=== PATIENT | female | born 1960 | race Hispanic/Latino ===

== ENCOUNTER 2018-03-17 20:14 | Observation (INO) | payer OTHER, SELFPAY ==
[2018-03-17] MEDS ORDERED: diphenhydrAMINE 50 MG/ML VIAL ONE (22:20)
[2018-03-17] MEDS ORDERED: Metoclopramide HCl 10 MG/2 ML VIAL ONE (22:20)
--- NOTE | 2018-03-17 23:05 | CT ---
CT BRAIN NONCONTRAST: DATE: 03/17/18 TIME: 10:48 p.m. HISTORY: 57-year-old female with left sided headaches, photophobia and left upper extremity weakness. FINDINGS: There is no midline shift or any other mass effect. There is no evidence of acute intracranial hemor rhage, large cortical infarct, obstructive hydrocephalus, or extraaxial fluid collection. The calvar ium is intact. There is a small apparently intra-axial calcification in the left frontal cortex which is unchanged compared to previous CT of 04/15/10. This is nonspecific. 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 IMPRESSION: 1. No acute intracranial findings. 2. Small, benign left frontal lobe calcification. elo reeves POS: [facility]
[2018-03-17 23:40] LABS: #Monocytes 0.1 thou/uL (0.11-0.59); #Neutrophils 8.3 thou/uL (1.40-6.50); %Basophils 0.2 % (0.0-1.0); %Lymphocytes 10.1 % (21.0-51.0); %Monocytes 0.7 % (0.0-10.0); %Neutrophils 88.9 % (42.0-75.0); Hemoglobin 13.4 g/dL (12.0-16.0); Mean Corpuscular HGB CONC 34.6 g/dL (32.0-36.0); Mean Corpuscular Hemoglobin 30.3 pg (27.0-31.0); Mean Corpuscular Volume 87.7 fL (78.0-98.0); Mean Platelet Volume 7.9 fL (7.4-10.4); Platelet Count 247 thou/uL (130-400); RBC Distribution Width 12.1 % (11.5-14.5); Red Blood Cell (RBC) Count 4.43 mill/uL (4.20-5.40); White Blood Cell (WBC) Count 9.4 thou/uL (4.8-10.8)
[2018-03-17 23:47] LABS: PTT 31.8 SEC (22.9-36.1); Prothrombin Time 13.5 SEC (12.0-14.7)
[2018-03-17 23:51] LABS: ALT (SGPT) 25 U/L (8-55); AST (SGOT) 29 U/L (5-34); Albumin 4.8 g/dL (3.5-5.0); Alkaline Phosphatase 88 U/L (40-150); Anion Gap 11 mmol/L (10-20); BUN (Urea Nitrogen) 28 mg/dL (9.8-20.1); Bilirubin, Total 0.3 mg/dL (0.2-1.2); Calc. Creatinine Clearance 0 mL/min (70-130); Calcium 9.7 mg/dL (7.8-10.44); Carbon Dioxide 23 mmol/L (22-29); Chloride 108 mmol/L (98-107); Estimated GFR-MDRD 59; Globulin 3.1 g/dL (2.4-3.5); Glucose 153 mg/dL (70-105); Potassium 4.3 mmol/L (3.5-5.1); Protein, Total 7.9 g/dL (6.0-8.3); Sodium 138 mmol/L (136-145)
[2018-03-18] MEDS ORDERED: Ondansetron HCl/PF 4 MG/2 ML Vial IVP PRN ×2 (02:49→05:02)
[2018-03-18] MEDS ORDERED: Ondansetron ODT 4 MG TAB SL PRN (02:49)
[2018-03-18] MEDS ORDERED: Acetaminophen 325 MG TAB PO PRN ×2 (02:49→05:02)
[2018-03-18 03:09] VITALS: BMI 24.1
[2018-03-18] MEDS ORDERED: hydrALAZINE 20 MG/ML VIAL SLOW IVP PRN ×2 (05:02)
[2018-03-18] MEDS ORDERED: Diabetic Tussin 200 MG/10 ML UDCUP PO PRN (05:02)
[2018-03-18] MEDS ORDERED: Loratadine 10 MG TAB PO PRN (05:02)
[2018-03-18] MEDS ORDERED: Benzonatate 100 MG CAP PO PRN (05:02)
[2018-03-18] MEDS ORDERED: Lorazepam 1 MG TAB PO PRN (05:02)
[2018-03-18] MEDS ORDERED: traMADol HCl 50 MG TAB PO PRN (05:02)
[2018-03-18] MEDS ORDERED: Nitroglycerin 0.4 MG TAB (25 Tab Bottle) SL PRN (05:02)
--- NOTE | 2018-03-18 05:41 | HP ---
DATE OF ADMISSION: 03/18/2018 PRIMARY CARE PHYSICIAN: Yulisa Murillo D.O. CHIEF COMPLAINT: Headache and left arm numbness. HISTORY OF PRESENT ILLNESS: Ms. Hester is a pleasant 57-year-old female with past medical history o nly of hypothyroidism who presented to the emergency room with the above-mentioned complaint. Histor y is mainly obtained by the patient herself. Electronic medical records have been reviewed. Case dominguez s been discussed with admitting ER physician, Dr. Nielson. Ms. Hester reported that for the last 3 weeks she has been having intermittent left-sided headache, which is quite severe. It is associated with photophobia and yesterday morning, she started to have left upper extremity weakness. She denies any facial droop or slurred speech. She denies any proble m with swallowing on memory. She denies any muscle weakness. She denies any recent illnesses, fever , chills, cough, nausea, vomiting, diarrhea, abdominal pains, dysuria, frequency, urgency. She prese nted to the emergency room with regards to these symptoms. Upon presentation, she was hemodynamically stable with blood pressure 148/87. Her physical examinati on for the emergency room was unremarkable and NIH score as per the report was zero. She underwent a head CT which was unremarkable. She was given Benadryl and Reglan for some reason as well as normal saline and is now being admitted for further evaluation and care and rule out transient ischemic att ack/cerebrovascular accident. PAST MEDICAL HISTORY: Hypothyroidism. PAST SURGICAL HISTORY: section. PSYCHIATRIC HISTORY: No Anxiety, depression. SOCIAL HISTORY: She is and lives with her family. 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 No history of drug, tobacco, or alcohol abuse. FAMILY HISTORY: She denies any family history of stroke or coronary artery disease or cancer. ALLERGIES: No known medication allergies. CURRENT MEDICATIONS: Thyroid medication, she does not remember the name, but remembers that she take s 25 mcg daily. REVIEW OF SYSTEMS: Her symptoms are much improved now. A 12-point review of systems is done, it is negative except for those mentioned in the history and physical. The following complete review of sy stems was negative, unless otherwise mentioned in the HPI or below: Constitutional: Weight loss or gain, ability to conduct usual activities. Skin: Rash, itching. Eyes: Double vision, pain. ENT/Mo uth: Nose bleeding, neck stiffness, pain, tenderness. Cardiovascular: Palpitations, dyspnea on exe rtion, orthopnea. Respiratory: Shortness of breath, wheezing, cough, hemoptysis, fever or night swe ats. Gastrointestinal: Poor appetite, abdominal pain, heartburn, nausea, vomiting, constipation, or diarrhea. Genitourinary: Urgency, frequency, dysuria, nocturia. Musculoskeletal: Pain, swelling. Neurologic/Psychiatric: Anxiety, depression. Allergy/Immunologic: Skin rash, bleeding tendency. PHYSICAL EXAMINATION: VITAL SIGNS: Most recent temperature 97.6, pulse of 69, respirations 20, saturating 96% on room air, and blood pressure 102/68. GENERAL: No acute distress, awake, alert, oriented x3. HEENT: Mucous membrane is moist and pink. No oropharyngeal exudate or erythema. Head is normocepha lic, atraumatic. Pupils equal, reactive to light and accommodation. Extraocular movement intact. NECK: Supple without any lymphadenopathy, JVD or bruit. CHEST: Clear to auscultation without any wheezing, rales or rhonchi. Rate and rhythm is regular wit hout any murmur, rubs or gallops. ABDOMEN: Soft, nontender, nondistended, positive bowel sounds. EXTREMITIES: Free of any cyanosis, clubbing, or edema. NEUROLOGIC: Nonfocal. SKIN: Free of any rashes or bruises. Feel warm and dry to touch. PSYCHIATRIC: Normal affect. LABORATORY DATA: CBC is unremarkable except for elevated neutrophils with normal WBCs. WBC 9.4, lorenza trophils 88%. PT, PTT and INR are unremarkable. Serum chemistry shows chloride of 108, BUN 28, bloo d sugar of 153. CT scan of the brain by my review is negative for any acute infarction or hemorrhage . IMPRESSION AND PLAN: 1. Headache with left upper extremity weakness. Her symptoms have resolved. Most likely atypical m igraine. However, transient ischemic attack, will need to be ruled out. We will obtain an MRI of th e brain and carotid ultrasound and echocardiogram. We will start her on daily full dose of aspirin a nd check lipid panel and start a statin if elevated. If her MRI is abnormal, we will request consult ation with Neurology. She will be admitted to stroke floor for now on telemetry monitoring. 2. Hypothyroidism. Resume home medications once confirmed. 3. Code status: FULL CODE, discussed with the patient. 4. Deep venous thrombosis and gastrointestinal prophylaxis. DISPOSITION: Ms. Hester is currently being admitted to the hospital to rule out CVA. She is admitt ed under observation status. Further management will depend upon her clinical course.
[2018-03-18] MEDS ORDERED: Enoxaparin Sodium 40 MG/0.4 ML SYRINGE SC SCH (09:00)
[2018-03-18] MEDS ORDERED: Aspirin 325 mg Enteric Coated Tablet PO SCH (09:00)
--- NOTE | 2018-03-18 09:35 | ULT ---
CAROTID ULTRASOUND: COMPARISON: None. HISTORY: TIA. TECHNIQUE: Multiplanar, ware scale, and color Doppler images were obtained in a carotid ultrasound. Spectral an alysis of the Doppler waveforms was performed. FINDINGS: No significant plaque is seen in either common or internal carotid artery. The Doppler waveforms are normal bilaterally. Peak systolic velocity in the right ICA is 84 cm/s. Peak systolic velocity in the right CCA is 67 cm /s. The right ICA/CCA ratio is 1.3. Peak systolic velocity in the left ICA is 72 cm/s. Peak systolic velocity in the CCA is 72 cm/s. Th e left ICA/CCA ratio is 1.0. Both vertebral arteries demonstrate antegrade flow without focal stenosis. IMPRESSION: No evidence of hemodynamically significant stenosis. POS: [facility]
--- NOTE | 2018-03-18 10:08 | MRI ---
MRI BRAIN WITHOUT CONTRAST: HISTORY: Transient ischemic attack. Photophobia. Left-sided headache. COMPARISON: None. TECHNIQUE: MRI is performed without intravenous Gadolinium administration. Multisequential, multiplanar imaging is performed. FINDINGS: The calvarium has a normal T1 marrow signal intensity. Midline brain parenchymal structures are unre markable. There is blooming associated with the calcification noted in the left frontal cortex, corresponding t o recent CT. No evidence of acute hemorrhage. No parenchymal mass, mass effect, or midline shift. Brain volume is age appropriate. Cortical ware- white matter differentiation is preserved. Ventricles and sulci are patent and symmetric. Minimal white matter hyperintensities in the T2 and FLAIR sequence are nonspecific. Central arterial flow voids are maintained. No restricted diffusion. Adequate aeration of the sinus es and mastoid air cells. IMPRESSION: 1. Absence of restricted diffusion. No acute infarct. 2. Calcification involving the left frontal lobe cortex. There is no associated abnormal parenchyma l signal in the region of the calcification. POS: [facility]
[2018-03-18 15:52] VITALS: BP 106/62; TEMP 97.8
--- NOTE | 2018-03-18 16:58 | DIS ---
PRIMARY CARE PHYSICIAN: Yulisa Murillo D.O. DATE OF ADMISSION: 03/10/2018 at 0300 DATE OF DISCHARGE: 03/18/2018 at 1500. DISCHARGE DIAGNOSES: 1. Migraine variant with neurologic symptoms of left-sided weakness and facial numbness. 2. Hypothyroidism. CONSULTATIONS: None. PROCEDURES: 1. Carotid ultrasound showed no hemodynamically significant stenosis. 2. Brain MRI negative for acute infarct. HISTORY AND PHYSICAL: Ms. Hester is a 57-year-old female with history of hypothyroidism, who presen zuleima to Emergency Department with acute onset of left-sided facial numbness and left arm weakness. Wo rkup in the ER was negative with a negative CT and we were subsequently called for admit. HOSPITAL COURSE: The patient was seen and examined early this morning by Dr Monroe. The patient wa s placed in observation, neuro checks were ordered. A fasting lipid profile was normal. MRI was neg ative and carotid ultrasound was negative. Patient's symptoms improved as her headache improved and was virtually gone at the time of discharge. She was continued on aspirin at the time of discharge, DISCHARGE CONDITION: Stable. DISPOSITION: To be discharged home via private vehicle. DISCHARGE MEDICATIONS: 1. Levothyroxine. Current home dose, she believes 25 mcg daily. 2. Aspirin 325 mg new prescription. DISCHARGE ACTIVITY: Per cardiopulmonary limits. DISCHARGE DIET: Heart healthy recommended. FOLLOWUP APPOINTMENTS: Primary care physician within a week.
== END 2018-03-18 17:20 | disposition home or self-care (01) ==
LOC: ERS 20:14 → 2SE 03-18 00:20
PROVIDERS: ADMIT Internal Medicine; ATTEND Internal Medicine
DX: G43.909 Migraine, unspecified, not intractable, without status migrainosus (principal); R53.1 Weakness; R20.0 Anesthesia of skin; E03.9 Hypothyroidism, unspecified; Z79.899 Other long term (current) drug therapy
CPT/HCPCS: 70450; 70551; 80053; 85025; 85610; 85730; 93880; 96361; 96372; 96374; 96375; G0378; J1200; J1650; J2765

== ENCOUNTER 2022-08-11 10:44 | Outpatient (CLI) | payer BC ==
[~2022-08-11 10:44] MED LIST: Iopamidol 370 76% 100 ML VIAL ONE
== END 2022-08-11 10:45 | disposition home or self-care (01) ==
LOC: MRI 10:44
PROVIDERS: ATTEND Psychiatry & Neurology Neurology
DX: G81.94 Hemiplegia, unspecified affecting left nondominant side (principal); I34.0 Nonrheumatic mitral (valve) insufficiency; J98.4 Other disorders of lung; R90.82 White matter disease, unspecified
CPT/HCPCS: 70496; 70498; 70551; 82565; 93306; Q9967

== ENCOUNTER 2022-11-05 08:48 | Outpatient (CLI) | payer OTHER | END 2022-11-05 08:49 | disposition home or self-care (01) | LOC: NM 08:48 | PROVIDERS: ATTEND Psychiatry & Neurology Neurology | DX: G20 Parkinson's disease (principal) | CPT/HCPCS: 78803; A9584 ==

== ENCOUNTER 2023-01-19 09:07 | Outpatient (CLI) | payer OTHER | END 2023-01-19 09:08 | disposition home or self-care (01) | LOC: BICULT 09:07 | PROVIDERS: ATTEND Family Medicine | DX: E04.9 Nontoxic goiter, unspecified (principal) | CPT/HCPCS: 76536 ==

== ENCOUNTER 2023-06-24 07:40 | Outpatient (CLI) | payer OTHER | END 2023-06-24 07:41 | disposition home or self-care (01) | LOC: ULT 07:40 | PROVIDERS: ATTEND Family Medicine | DX: R10.9 Unspecified abdominal pain (principal) | CPT/HCPCS: 76700; 76856 ==

== ENCOUNTER 2024-01-29 12:24 | Outpatient (CLI) | payer OTHER | END 2024-01-29 12:25 | disposition home or self-care (01) | LOC: BICMAMMO 12:24 | PROVIDERS: ATTEND Family Medicine | DX: Z12.31 Encounter for screening mammogram for malignant neoplasm of breast (principal) | CPT/HCPCS: 77063; 77067 ==